=== PATIENT | female | born 1955 | race Caucasian/White ===

== ENCOUNTER 2016-06-04 10:59 | Outpatient (CLI) | payer BC ==
[2016-06-04 11:39] LABS: Hemoglobin 15.3 g/dL (12.0-16.0); Mean Corpuscular HGB CONC 33.4 g/dL (32.0-36.0); Mean Corpuscular Hemoglobin 29.8 pg (27.0-31.0); Mean Corpuscular Volume 89.2 fl (81.0-99.0); Mean Platelet Volume 10.6 fL (7.4-10.4); Platelet Count 185 thou/uL (130-400); RBC Distribution Width 11.7 % (11.5-14.5); Red Blood Cell (RBC) Count 5.15 mill/uL (4.20-5.40); White Blood Cell (WBC) Count 4.6 thou/uL (4.8-10.8)
[2016-06-04 11:57] LABS: Cardiac Risk 2.4 (Less than 4.5)
[2016-06-04 12:20] LABS: Free T4 (Free Thyroxine) 1.16 ng/dL (0.70-1.48); Thyroid Stimulating Hormone 0.9302 uIU/mL (0.35-4.94)
[2016-06-04 13:09] LABS: Hemoglobin A1c 7.7 % (4.0-6.0)
[2016-06-04 18:14] LABS: Free T3 1.62 pg/mL (1.71-3.71)
== END 2016-06-04 11:00 | disposition home or self-care (01) ==
LOC: BURLAB 10:59
PROVIDERS: ATTEND Internal Medicine Endocrinology, Diabetes & Metabolism
DX: E78.00 Pure hypercholesterolemia, unspecified (principal); E03.9 Hypothyroidism, unspecified; E53.8 Deficiency of other specified B group vitamins; Z79.899 Other long term (current) drug therapy
CPT/HCPCS: 36415; 80061; 82977; 83036; 84439; 84443; 84481; 85027

== ENCOUNTER 2018-11-23 12:32 | Outpatient (CLI) | payer MEDICARE, BC ==
--- NOTE | 2018-11-23 18:20 | RAD ---
LEFT KNEE TWO VIEWS: 11/23/18 No fracture, dislocation, or joint space narrowing was seen. There is no evidence of joint fluid. Ranjeet nt calcification is seen in the popliteal artery. IMPRESSION: No acute findings. POS: HOME
== END 2018-11-23 12:33 | disposition home or self-care (01) ==
LOC: BURRAD 12:32
PROVIDERS: ATTEND Family Medicine
DX: M25.562 Pain in left knee (principal)

== ENCOUNTER 2019-04-11 16:11 | Outpatient (CLI) | payer MEDICARE, BC ==
--- NOTE | 2019-04-11 19:40 | RAD ---
LEFT KNEE TWO VIEWS: 04/11/19 Comparison is made with a 11/23/18 study. The medial joint space seems slightly narrower than before, but this could be due to angulation of the image. No fracture or joint effusion was seen. The articu lar surfaces remain smooth. Faint calcification is seen in the popliteal artery. IMPRESSION: No acute bony findings. POS: HOME
== END 2019-04-11 16:12 | disposition home or self-care (01) ==
LOC: BURRAD 16:11
PROVIDERS: ATTEND Nurse Practitioner Family
DX: M25.562 Pain in left knee (principal)